=== PATIENT | male | born 1955 | race African-American/Black ===

== ENCOUNTER 2022-09-21 14:53 | Emergency (ER) | payer OTHER ==
[2022-09-21 15:08] VITALS: BP 143/95; PULSE 55; RESP 18; TEMP 99; BMI 19.9
== END 2022-09-21 17:30 | disposition home or self-care (01) ==
LOC: JER 14:53
DX: R09.81 Nasal congestion (principal); F11.23 Opioid dependence with withdrawal; R91.1 Solitary pulmonary nodule; Z20.822 Contact with and (suspected) exposure to COVID-19
CPT/HCPCS: 0241U-QW; 71046-TC-FY; 99284-25

== ENCOUNTER 2022-09-21 18:32 | Inpatient (IN) | payer OTHER ==
[2022-09-21 14:14] VITALS: BMI 18.5
[2022-09-21] MEDS ORDERED: MAG HYDROX/AL HYDROX/SIMETH 30 ML UNIT-DOSE CUP PO PRN (20:34)
[2022-09-21] MEDS ORDERED: NALOXONE HCL (KLOXXADO) 8 MG SPRAY NS PRN (20:34)
[2022-09-21] MEDS ORDERED: IBUPROFEN 600 MG TABLET (FP) PO PRN (20:34)
[2022-09-21] MEDS ORDERED: hydrOXYzine PAMOATE 25 MG CAPSULE (FP) PO PRN (20:34)
[2022-09-21] MEDS ORDERED: IBUPROFEN 400 MG TABLET (FP) PO PRN (20:34)
[2022-09-21] MEDS ORDERED: BENZOCAINE/MENTHOL (CHLORASEPTIC ) LOZENGE MM PRN (20:34)
[2022-09-21] MEDS ORDERED: guaiFENesin 600 MG TABLET.ER (FP) PO PRN (20:34)
[2022-09-21] MEDS ORDERED: LOPERAMIDE HCL 2 MG CAPSULE PO PRN (20:34)
[2022-09-21] MEDS ORDERED: NALOXONE HCL 0.4 MG/ML VIAL IM PRN (20:34)
[2022-09-21] MEDS ORDERED: P-EPHED 60MG/TRIPROLIDI 2.5MG TABLET PO PRN (20:34)
[2022-09-21] MEDS ORDERED: BENZONATATE 200 MG CAPSULE PO PRN (20:34)
[2022-09-21] MEDS ORDERED: COLLOIDAL OATMEAL 1 BAR EACH TP PRN (20:34)
[2022-09-21] MEDS ORDERED: AMMONIUM LACTATE 12% LOTION 225 GM BOTTLE TP PRN (20:34)
[2022-09-21] MEDS ORDERED: POLYETHYLENE GLYCOL (HEALTHYLAX) 3350 17 GM PACKET PO PRN (20:34)
[2022-09-21] MEDS ORDERED: MAGNESIUM HYDROX 2400MG/30ML ORAL SUSPENSION 30 ML CUP PO PRN (20:34)
[2022-09-21] MEDS ORDERED: ACETAMINOPHEN 325 MG TABLET (FP) PO PRN (20:34)
[2022-09-21] MEDS: THIAMINE HCL 100 MG TABLET (FP) PO SCH (21:46)
[2022-09-21] MEDS: MELATONIN 5 MG TABLETS PO SCH (21:47)
[2022-09-21] MEDS ORDERED: levETIRAcetam 250 MG TABLET PO ONE (22:00)
[2022-09-21] MEDS ORDERED: cloNIDine HCL 0.1 MG TABLET PO ONE (22:30)
[2022-09-22] MEDS: PRENATAL VITAMINS W/ FOLIC ACID TABLET (FP) PO SCH (09:42)
[2022-09-22] MEDS ORDERED: ALBUTEROL SO4 HFA INHALER IH PRN (09:56)
[2022-09-22] MEDS: amLODIPine BESYLATE 10 MG TABLET (FP) PO SCH (10:38)
[2022-09-22 12:49] LABS: SYPHILIS W/ RPR CONF NON-REACTIVE (NONREACTIVE)
[2022-09-22 17:29] LABS: PH,URINE 7.5 (5.0-8.0); URINE APPEARANCE CLEAR; URINE BILIRUBIN NEGATIVE (NEGATIVE); URINE COLOR YELLOW; URINE GLUCOSE (UA) NEGATIVE (NEGATIVE); URINE KETONE NEGATIVE (NEGATIVE); URINE LEUK ESTERASE NEGATIVE (NEGATIVE); URINE NITRITE NEGATIVE (NEGATIVE); URINE PROTEIN TRACE (NEGATIVE)
[2022-09-22] MEDS: THIAMINE HCL 100 MG TABLET (FP) PO SCH (21:56)
[2022-09-22] MEDS: MELATONIN 5 MG TABLETS PO SCH (21:56)
[2022-09-23] MEDS: amLODIPine BESYLATE 10 MG TABLET (FP) PO SCH (09:21)
[2022-09-23] MEDS: PRENATAL VITAMINS W/ FOLIC ACID TABLET (FP) PO SCH (09:21)
[2022-09-23] MEDS: MELATONIN 5 MG TABLETS PO SCH (21:35)
[2022-09-23] MEDS: THIAMINE HCL 100 MG TABLET (FP) PO SCH (21:35)
[2022-09-23] MEDS: traZODone HCL 50 MG TABLET (FP) PO SCH (21:36)
[2022-09-24] MEDS: PRENATAL VITAMINS W/ FOLIC ACID TABLET (FP) PO SCH (09:21)
[2022-09-24] MEDS: amLODIPine BESYLATE 10 MG TABLET (FP) PO SCH (09:21)
[2022-09-24] MEDS: HYDROCHLOROTHIAZIDE 25 MG TABLET (FP) PO SCH (12:52)
[2022-09-24] MEDS: MELATONIN 5 MG TABLETS PO SCH (21:10)
[2022-09-24] MEDS: traZODone HCL 50 MG TABLET (FP) PO SCH (21:10)
[2022-09-24] MEDS: THIAMINE HCL 100 MG TABLET (FP) PO SCH (21:10)
[2022-09-25 06:39] VITALS: TEMP 98.5
[2022-09-25] MEDS ORDERED: cloNIDine HCL 0.1 MG TABLET PO ONE (06:50)
[2022-09-25 07:34] VITALS: RESP 18
[2022-09-25 09:12] VITALS: BP 134/95; PULSE 89
[2022-09-25] MEDS: amLODIPine BESYLATE 10 MG TABLET (FP) PO SCH (09:14)
[2022-09-25] MEDS: PRENATAL VITAMINS W/ FOLIC ACID TABLET (FP) PO SCH (09:14)
[2022-09-25] MEDS: HYDROCHLOROTHIAZIDE 25 MG TABLET (FP) PO SCH (09:14)
[2022-09-25 10:16] LABS: POTASSIUM 3.3 mmol/L (3.5-5.1)
[2022-09-25 10:21] LABS: HEMATOCRIT 42.8 % (35.4-49); HEMOGLOBIN 13.5 GM/dL (11.7-16.9); MCH 26.6 pg (25.7-33.7); MCHC 31.5 g/dl (32.0-35.9); MEAN CELL VOLUME 84.5 fl (80-96); MEAN PLT VOLUME 8.3 fl (7.5-11.1); PLATELET COUNT 272 10^3/uL (134-434); RBC 5.07 M/mm3 (4.00-5.60); RDW 14.6 % (11.9-15.9); WHITE BLOOD COUNT 5.6 K/mm3 (4.0-10.0)
[2022-09-25 10:23] LABS: ALBUMIN 3.5 g/dl (3.4-5.0); CALCIUM 9.4 mg/dL (8.5-10.1)
[2022-09-25 10:24] LABS: BLOOD UREA NITROGEN 17.2 mg/dL (7-18)
[2022-09-25 10:27] LABS: CREATININE 1.6 mg/dL (0.55-1.3)
[2022-09-25 10:28] LABS: BILIRUBIN,TOTAL 0.9 mg/dL (0.2-1); TOT PROT 6.9 g/dl (6.4-8.2)
== END 2022-09-25 10:38 | disposition left against medical advice (07) | DRG 894 ==
LOC: YASAS 18:32 → Y3E 20:35
PROVIDERS: ADMIT Allergy & Immunology; ATTEND Psychiatry & Neurology Pain Medicine
PROC: HZ42ZZZ Group Counseling for Substance Abuse Treatment, Cognitive-Behavioral (ICD-10-PCS; principal; 2022-09-21)
DX: F11.20 Opioid dependence, uncomplicated (principal); F14.20 Cocaine dependence, uncomplicated; E87.6 Hypokalemia; G40.909 Epilepsy, unspecified, not intractable, without status epilepticus; I12.9 Hypertensive chronic kidney disease with stage 1 through stage 4 chronic kidney disease, or unspecified chronic kidney disease; N18.9 Chronic kidney disease, unspecified; J45.20 Mild intermittent asthma, uncomplicated; N40.0 Benign prostatic hyperplasia without lower urinary tract symptoms; R91.1 Solitary pulmonary nodule
CPT/HCPCS: 36415; 80053; 81003; 85027; 86780; 86803; 93005; 93010

== ENCOUNTER 2023-06-21 19:39 | Inpatient (IN) | payer OTHER ==
[2023-06-21 20:31] VITALS: BMI 22.4
[2023-06-21] MEDS ORDERED: NALOXONE HCL (KLOXXADO) 8 MG SPRAY NS PRN (21:17)
[2023-06-21] MEDS ORDERED: ACETAMINOPHEN 325 MG TABLET (FP) PO PRN (21:17)
[2023-06-21] MEDS ORDERED: NALOXONE HCL 0.4 MG/ML VIAL IM PRN (21:17)
[2023-06-21] MEDS ORDERED: IBUPROFEN 400 MG TABLET (FP) PO PRN (21:17)
[2023-06-21] MEDS ORDERED: MAG HYDROX/AL HYDROX/SIMETH 30 ML UNIT-DOSE CUP PO PRN (21:17)
[2023-06-21] MEDS ORDERED: BENZOCAINE/MENTHOL (CHLORASEPTIC ) LOZENGE MM PRN (21:17)
[2023-06-21] MEDS ORDERED: LOPERAMIDE HCL 2 MG CAPSULE PO PRN (21:17)
[2023-06-21] MEDS ORDERED: guaiFENesin 600 MG TABLET.ER (FP) PO PRN (21:17)
[2023-06-21] MEDS ORDERED: IBUPROFEN 600 MG TABLET (FP) PO PRN (21:17)
[2023-06-21] MEDS ORDERED: MAGNESIUM HYDROX 2400MG/30ML ORAL SUSPENSION 30 ML CUP PO PRN (21:17)
[2023-06-21] MEDS ORDERED: POLYETHYLENE GLYCOL (HEALTHYLAX) 3350 17 GM PACKET PO PRN (21:17)
[2023-06-21] MEDS ORDERED: BENZONATATE 200 MG CAPSULE PO PRN (21:17)
[2023-06-21] MEDS ORDERED: cloNIDine HCL 0.1 MG TABLET ONE (23:19)
[2023-06-21] MEDS ORDERED: MELATONIN 5 MG TABLETS ONE (23:19)
[2023-06-21] MEDS: MELATONIN 5 MG TABLETS PO SCH (23:23)
[2023-06-21] MEDS: THIAMINE HCL 100 MG TABLET (FP) PO SCH (23:23)
[2023-06-21] MEDS: cloNIDine HCL 0.1 MG TABLET PO ONE (23:23)
[2023-06-22 00:35] VITALS: RESP 18
[2023-06-22] MEDS ORDERED: TUBERCULIN PPD 5 TU/0.1ML SYRINGE (IN PATIENT USE ONLY) ID ONE (01:25)
[2023-06-22] MEDS ORDERED: TUBERCULIN PPD 5 TU/0.1ML VIAL ID ONE (03:51)
[2023-06-22] MEDS: TUBERCULIN PPD 5 TU/0.1ML SYRINGE (IN PATIENT USE ONLY) ID ONE (07:02)
[2023-06-22] MEDS: PRENATAL VITAMINS W/ FOLIC ACID TABLET (FP) PO SCH (10:11)
[2023-06-22] MEDS: levETIRAcetam 500 MG TABLET (FP) PO SCH (10:12)
[2023-06-22 12:11] LABS: HEMATOCRIT 36.2 % (35.4-49); HEMOGLOBIN 11.7 GM/dL (11.7-16.9); MCH 27.5 pg (25.7-33.7); MCHC 32.3 g/dl (32.0-35.9); MEAN PLT VOLUME 7.7 fl (7.5-11.1); PLATELET COUNT 242 10^3/uL (134-434); RBC 4.25 M/mm3 (4.00-5.60); RDW 14.3 % (11.9-15.9); WHITE BLOOD COUNT 4.7 K/mm3 (4.0-10.0)
[2023-06-22 13:52] LABS: CHLORIDE 104 mmol/L (98-107); POTASSIUM 3.6 mmol/L (3.5-5.1); SODIUM 142 mmol/L (136-145)
[2023-06-22 13:59] LABS: SGPT/ALT 19 U/L (13-61)
[2023-06-22 14:04] LABS: CREATININE 1.4 mg/dL (0.55-1.3); SGOT/AST 19 U/L (15-37)
[2023-06-22 14:05] LABS: ALBUMIN 3.7 g/dl (3.4-5.0); ANION GAP 5 mmol/L (4-13); BILIRUBIN,TOTAL 1.4 mg/dL (0.2-1); BLOOD UREA NITROGEN 23.4 mg/dL (7-18); CALCIUM 9.6 mg/dL (8.5-10.1); CO2 33 mmol/L (21-32); GLUCOSE,RANDOM 94 mg/dL (74-106); TOT PROT 7.3 g/dl (6.4-8.2)
[2023-06-22 14:07] LABS: ALK PHOS 61 U/L (45-117)
[2023-06-22 14:47] LABS: URINE APPEARANCE CLEAR; URINE BILIRUBIN NEGATIVE (NEGATIVE); URINE COLOR YELLOW; URINE GLUCOSE (UA) NEGATIVE (NEGATIVE); URINE KETONE NEGATIVE (NEGATIVE); URINE LEUK ESTERASE NEGATIVE (NEGATIVE); URINE NITRITE NEGATIVE (NEGATIVE); URINE PROTEIN NEGATIVE (NEGATIVE); URINE UROBILINOGEN 0.2 mg/dL (0.2-1.0)
[2023-06-23 07:20] VITALS: BP 127/96; PULSE 85; TEMP 98.7
== END 2023-06-23 10:30 | disposition left against medical advice (07) | DRG 894 ==
LOC: YASAS 19:39 → Y5N 23:42
PROVIDERS: ADMIT Allergy & Immunology; ATTEND Psychiatry & Neurology Pain Medicine
PROC: HZ42ZZZ Group Counseling for Substance Abuse Treatment, Cognitive-Behavioral (ICD-10-PCS; principal; 2023-06-21)
DX: F14.20 Cocaine dependence, uncomplicated (principal); F10.20 Alcohol dependence, uncomplicated; E87.6 Hypokalemia; I10 Essential (primary) hypertension; J45.20 Mild intermittent asthma, uncomplicated; N40.0 Benign prostatic hyperplasia without lower urinary tract symptoms; Z86.69 Personal history of other diseases of the nervous system and sense organs; Z28.310 Unvaccinated for COVID-19; Z28.9 Immunization not carried out for unspecified reason
CPT/HCPCS: 36415; 80053; 80305; 80307; 81003; 85027; 86780; 87635; 93005; 93010